=== PATIENT | female | born 1950 | race Caucasian/White ===

== ENCOUNTER 2017-02-08 10:28 | Outpatient (CLI) | payer MEDICARE ==
--- NOTE | 2017-02-08 14:32 | NM ---
WHOLE BODY BONE SCAN: HISTORY: Back pain and left hip pain. The patient had back surgery. She has a left-sided gluteal neurostimul ator device. RADIOPHARMACEUTICAL: 32.7 mCi Technetium 99m injected intravenously. FINDINGS: There is a small focus of asymmetrically increased uptake in the superolateral aspect of the left hip joint. There is a small focus of increased uptake in the lumbar spine to the right of midline at L1-2 level . This likely is due to degenerative/postoperative change. Increased uptake in the left ankle is consistent with postop changes noted on the ankle x-rays of 12/12/14. Increased uptake in the feet and shoulders is consistent with degenerative changes. Tracer ex cretion through the kidneys is within normal limits. IMPRESSION: Small focus of increased uptake in the superolateral aspect of the left hip. Correlation with plain radiographs is recommended. POS: [facility]
== END 2017-02-08 10:29 | disposition home or self-care (01) ==
LOC: NM 10:28
PROVIDERS: ATTEND Orthopaedic Surgery
DX: M16.12 Unilateral primary osteoarthritis, left hip (principal)
CPT/HCPCS: 78306; A9503

== ENCOUNTER → 2017-03-30 | Day surgery (SDC) | payer MEDICARE ==
[2017-03-29 13:11] VITALS: BMI 26.5
[~2017-03-30] MED LIST: FLU VACC TS2017-18 (>65YR) 0.5 ML SYRINGE IM ONE; Prevnar 13-Val Conj/PF 0.5 ML SYRINGE IM ONE
[2017-03-30 09:33] VITALS: TEMP 97.8
--- NOTE | 2017-03-30 11:37 | RAD ---
LUMBAR SPINE RADIOGRAPH SERIES: INDICATION: Lumbar radiculopathy. FINDINGS: There is left convexity curvature of the lumbar spine. Mild retrolisthesis of L2 on 3. With flexion and extension positioning views, no obvious abnormal translational motion is present. There is mult ilevel end plate degenerative change and disk space narrowing. Intradiskal space device is present a t L4-5 and L5-S1. Multilevel facet hypertrophy is present. There is a partially imaged electronic s pro device present. IMPRESSION: Degenerative change and multilevel mild listhesis of the lumbar spine without obvious or significant translational motion. POS: [facility]
--- NOTE | 2017-03-30 11:47 | RAD ---
LUMBAR SPINE MYELOGRAM INDICATION: Lumbar radiculopathy. PROCEDURE: After informed consent had been obtained, the patient was escorted to the interventional suite and pl aced on the procedural table. Migratory Worker imaging was performed. The patient was placed into a prone posi tion. Skin on the low back was then prepped and draped in the standard sterile fashion and topical a nd regional soft tissue anesthesia was achieved with 1% lidocaine and sodium bicarbonate. L4-5 inte rlaminar approach was selected, and a 22 gauge needle was uneventfully advanced into the thecal sac w ith clear color CSF. Subsequently, 12 cc Isovue-M 300 was instilled into the thecal sac under real t maddie fluoroscopy. Appropriate opacification of thecal sac demonstrated with imaging stored [facility]. The needle was then removed from the patient. The patient tolerated the procedure well and was then transferred to CT to undergo subsequent myelogram. Reference separate report for full la nena ls. Fluoro data: 0.1 minutes intermittent fluoroscopy, 19 mGy*^m2. IMPRESSION: Technically successful lumbar myelogram as detailed above. POS: [facility]
--- NOTE | 2017-04-02 07:35 | CT ---
LUMBAR SPINE MYELOGRAM CT LUMBAR SPINE WITH CONTRAST: CLINICAL HISTORY: Lumbar radiculopathy. Low back pain, and bilateral hip pain. FINDINGS: Left convexity curvature of the lumbar spine is present. There is multilevel degenerative change at the lumbar spine, with the most pronounced endplate degenerative change at the L1-L2 level. There is diffuse osseous demineralization. A slight degree of retrolisthesis is seen at the L1-L2 and at the L2-L3 levels. Intradiskal space device is present at L4-L5 and at L5-S1. No acute compression frac ture is seen. The conus medullaris terminates at the L2 level, normal in morphology. L5-S1: The thecal sac is patent. There is mild osseous narrowing of each neural foramen. L4-L5: There is mild effacement of the ventral thecal sac. Limited visualization by streak artifact from adjacent hardware. There is mild osseous narrowing of the right neural foramen due to laterali zed osteophyte. No high grade left foraminal narrowing. L3-L4: There is mild narrowing of the central canal on the basis of a broad-based disk osteophyte. Mild bilateral narrowing of the subarticular zones and mild left foraminal stenosis present. L2-L3: There is a broad-based disk osteophyte at the left, asymmetric, with superimposed right parac entral disk protrusion. This results in mild narrowing of the central canal, as well as crowding of the bilateral traversing L3 nerve roots within the subarticular zones. There is mild osseous narrowi ng of each neural foramen. L1-L2: There is mild effacement of the right subarticular zone by disk osteophyte. Mild bilateral n eural foraminal stenosis is present due to a broad-based disk osteophyte. T12-L1: There is no high grade central canal stenosis. There is a left side approach, partially imaged electronic device with leads entering the posterior a spect of the vertebral column, at the T12-L1 level. Imaged retroperitoneum reveals no acute pathology. There is mild vascular calcification. There is c oarse calcification in the central abdomen. Multiple granulomatous calcifications are seen within th e spleen, and there is punctate hepatic calcification. IMPRESSION: Multilevel degenerative change throughout the lumbar spine, as outlined above. POS: [facility]
== END ==
LOC: RAD 09:06
PROVIDERS: ATTEND Physician Assistant Surgical
PROC: B00B1ZZ Plain Radiography of Spinal Cord using Low Osmolar Contrast (ICD-10-PCS; principal; 2017-03-30)
DX: M54.16 Radiculopathy, lumbar region (principal); Z88.0 Allergy status to penicillin; Z88.1 Allergy status to other antibiotic agents; Z88.2 Allergy status to sulfonamides
CPT/HCPCS: 62304; 72100; 72132

== ENCOUNTER 2017-05-04 23:40 | Inpatient (IN) | payer MEDICARE ==
[2017-05-05] MEDS ORDERED: Ondansetron HCl/PF 4 MG/2 ML Vial ONE ×2 (00:29→00:51)
[2017-05-05] MEDS ORDERED: Promethazine HCl 25 MG/ML VIAL ONE ×2 (00:29→00:51)
[2017-05-05 00:31] LABS: #Basophils 0.1 thou/uL (0.0-0.2); #Monocytes 0.6 thou/uL (0.11-0.59); #Neutrophils 7.7 thou/uL (1.40-6.50); %Basophils 0.8 % (0.0-1.0); %Eosinophils 0.2 % (0.0-10.0); %Lymphocytes 19.4 % (21.0-51.0); %Monocytes 5.8 % (0.0-10.0); %Neutrophils 73.9 % (42.0-75.0); Hemoglobin 13.7 g/dL (12.0-16.0); Mean Corpuscular HGB CONC 33.8 g/dL (32.0-36.0); Mean Corpuscular Hemoglobin 32.3 pg (27.0-31.0); Mean Corpuscular Volume 95.7 fl (81.0-99.0); Mean Platelet Volume 7.1 fL (7.4-10.4); Platelet Count 315 thou/uL (130-400); RBC Distribution Width 12.1 % (11.5-14.5); Red Blood Cell (RBC) Count 4.25 mill/uL (4.20-5.40); White Blood Cell (WBC) Count 10.4 thou/uL (4.8-10.8)
[2017-05-05 00:43] LABS: ALT (SGPT) 14 U/L (8-55); AST (SGOT) 16 U/L (5-34); Albumin 4.1 g/dL (3.4-4.8); Alkaline Phosphatase 75 U/L (40-150); Anion Gap 16 mmol/L (10-20); BUN (Urea Nitrogen) 12 mg/dL (9.8-20.1); Bilirubin, Total 0.8 mg/dL (0.2-1.2); Calc. Creatinine Clearance 0 mL/min (70-130); Calcium 8.9 mg/dL (7.8-10.44); Carbon Dioxide 22 mmol/L (23-31); Chloride 105 mmol/L (98-107); Estimated GFR-MDRD 72; Globulin 2.8 g/dL (2.4-3.5); Glucose 121 mg/dL (80-115); Lipase 10 U/L (8-78); Protein, Total 6.9 g/dL (6.0-8.3); Sodium 140 mmol/L (136-145)
[2017-05-05 00:52] LABS: Potassium 2.9 mmol/L (3.5-5.1)
[2017-05-05] MEDS ORDERED: Potassium Chloride 20 MEQ TAB ONE (01:04)
[2017-05-05] MEDS ORDERED: cloNIDine 0.1 MG TAB ONE (01:04)
[2017-05-05 03:12] VITALS: BMI 25.7
[2017-05-05] MEDS ORDERED: Promethazine HCl 12.5 MG in Sodium Chloride 0.9% 100 ML IVPB PRN (03:14)
[2017-05-05] MEDS: Ondansetron HCl/PF 4 MG/2 ML Vial IVP PRN ×3 (04:33→12:45)
[2017-05-05] MEDS ORDERED: Prevnar 13-Val Conj/PF 0.5 ML SYRINGE IM ONE (09:00)
[2017-05-05] MEDS: Promethazine HCl 25 MG/ML VIAL SLOW IVP PRN ×2 (10:14→16:55)
[2017-05-05] MEDS ORDERED: MORPHINE SULFATE 15 MG PO PRN (16:09)
[2017-05-05] MEDS ORDERED: Acetaminophen 500 MG TAB PO PRN (16:09)
[2017-05-05] MEDS ORDERED: diphenhydrAMINE 25 MG CAP PO PRN (16:09)
[2017-05-05] MEDS ORDERED: PROVENTIL INHALER 6.7 G (200 INHALATIONS) INH PRN (16:09)
[2017-05-05 16:22] LABS: Anion Gap 21 mmol/L (10-20); BUN (Urea Nitrogen) 8 mg/dL (9.8-20.1); Calc. Creatinine Clearance 70 mL/min (70-130); Calcium 9.6 mg/dL (7.8-10.44); Carbon Dioxide 19 mmol/L (23-31); Chloride 98 mmol/L (98-107); Estimated GFR-MDRD 70; Glucose 113 mg/dL (80-115); Sodium 135 mmol/L (136-145)
[2017-05-05 16:25] LABS: Potassium 2.7 mmol/L (3.5-5.1)
[2017-05-05] MEDS ORDERED: Zolpidem Tartrate 5 MG TAB PO PRN (16:35)
[2017-05-05] MEDS: Sodium Chloride 0.9% 1,000 ML IV SCH (16:47)
[2017-05-05] MEDS: Gabapentin 300 MG CAP PO SCH ×2 (16:47→20:03)
[2017-05-05] MEDS ORDERED: Potassium Chloride 40 MEQ in Sodium Chloride 0.9% 250 ML 250 ML IVPB SCH (17:15)
[2017-05-05] MEDS: ALPRAZolam 0.25 MG TAB PO SCH (20:02)
[2017-05-05] MEDS: Hydrocortisone 1% Cream 30 GM TUBE TOP SCH (20:03)
[2017-05-05] MEDS: cycloSPORINE 0.05% Ophthalmic Droperette EA EYE SCH (20:04)
[2017-05-05] MEDS: Lorazepam 2 MG/ML VIAL SLOW IVP PRN (20:05)
[2017-05-05] MEDS: Morphine 2 MG/ML SYRINGE SLOW IVP PRN (20:05)
[2017-05-05] MEDS: Morphine ER 30 MG TAB PO SCH (20:45)
[2017-05-06 01:22] LABS: Anion Gap 12 mmol/L (10-20); BUN (Urea Nitrogen) 9 mg/dL (9.8-20.1); Calc. Creatinine Clearance 82 mL/min (70-130); Carbon Dioxide 24 mmol/L (23-31); Chloride 103 mmol/L (98-107); Estimated GFR-MDRD 84; Glucose 126 mg/dL (80-115); Sodium 136 mmol/L (136-145)
[2017-05-06] MEDS: Sodium Chloride 0.9% 1,000 ML IV SCH ×3 (01:56→19:43)
[2017-05-06] MEDS: Morphine ER 30 MG TAB PO SCH ×3 (04:05→19:41)
[2017-05-06] MEDS: Promethazine HCl 25 MG/ML VIAL SLOW IVP PRN ×3 (04:06→19:43)
[2017-05-06] MEDS: Morphine 2 MG/ML SYRINGE SLOW IVP PRN ×3 (04:08→19:43)
[2017-05-06 08:42] LABS: Anion Gap 12 mmol/L (10-20); BUN (Urea Nitrogen) 11 mg/dL (9.8-20.1); Calc. Creatinine Clearance 86 mL/min (70-130); Calcium 8.7 mg/dL (7.8-10.44); Carbon Dioxide 23 mmol/L (23-31); Chloride 103 mmol/L (98-107); Estimated GFR-MDRD 87; Glucose 122 mg/dL (80-115); Sodium 135 mmol/L (136-145)
[2017-05-06 08:45] LABS: Potassium 2.9 mmol/L (3.5-5.1)
[2017-05-06] MEDS: Gabapentin 300 MG CAP PO SCH ×4 (09:11→19:41)
[2017-05-06] MEDS: Escitalopram Oxalate 10 mg Tablet PO SCH (09:11)
[2017-05-06] MEDS: ALPRAZolam 0.25 MG TAB PO SCH ×3 (09:11→19:40)
[2017-05-06] MEDS: Docusate 100 MG CAP PO SCH (09:11)
[2017-05-06] MEDS: Hydrocortisone 1% Cream 30 GM TUBE TOP SCH ×2 (09:12→19:41)
[2017-05-06] MEDS: cycloSPORINE 0.05% Ophthalmic Droperette EA EYE SCH ×2 (09:12→19:41)
[2017-05-06 16:59] LABS: Anion Gap 12 mmol/L (10-20); BUN (Urea Nitrogen) 10 mg/dL (9.8-20.1); Calc. Creatinine Clearance 90 mL/min (70-130); Calcium 8.7 mg/dL (7.8-10.44); Carbon Dioxide 25 mmol/L (23-31); Chloride 103 mmol/L (98-107); Estimated GFR-MDRD Greater than 90; Glucose 109 mg/dL (80-115); Sodium 137 mmol/L (136-145)
[2017-05-06 17:07] LABS: Potassium 2.9 mmol/L (3.5-5.1)
[2017-05-06] MEDS: Lorazepam 2 MG/ML VIAL SLOW IVP PRN (21:20)
--- NOTE | 2017-05-06 23:56 | PDOC.PN ---
- Subjective Encounter Start Date: 05/06/17 Encounter Start Time: 15:00 Subjective: nsg notes rev, oumou ovn, pt c/o headache and ongoing pain in her chronic jenniffer -: n sites along with nausea and has been gagging with any oral intake incl -: ice chips. dtr and at bedside. - Objective Vital Signs & Weight: Vital Signs (12 hours) Temp Pulse Resp BP Pulse Ox 05/06/17 23:08 87 18 98 05/06/17 20:48 97.7 F 91 20 142/72 H 98 05/06/17 20:00 99.4 F 84 20 05/06/17 16:00 99.4 F 84 20 158/71 H 98 05/06/17 12:00 99.3 F 91 18 136/63 95 Weight Weight 147 lb 8 oz I&O: 05/05/17 05/06/17 05/07/17 06:59 06:59 06:59 Intake Total 55 2109 1.25 Balance 55 2109 1.25 Result Diagrams: 05/05/17 00:15 05/07/17 00:28 Phys Exam - Physical Examination Constitutional: NAD HEENT: moist MMs, sclera anicteric Respiratory: no wheezing, no rales, no rhonchi, clear to auscultation bilateral Cardiovascular: RRR, no significant murmur, no rub Gastrointestinal: soft, non-tender, positive bowel sounds BM not loose x2 in last 12 hrs Musculoskeletal: no edema, pulses present Neurological: moves all 4 limbs Psychiatric: A&O x 3 Deviation from normal: anxious affect Dx/Plan - Plan * 67F who p/w c/o of nausea, multiple pain sites, diarrhea s/p 3 days of self cessation from her pain regimen * * withdrawal * narcotic withdrawal from multi-opioid and anxiolytic regimen contributing to constellation of ssx on presentation * supportive care including cautious resumption of regimen in IV formatting until patient is able to tolerate PO in which case we will resume her home regimen * d/w pt and her at bedside that if she wants to come off the medications which would be great, a slow taper would be ideal on an outpatient basis * pt states that without her pain regimen her pain is unbearable but she doesn' t want to be taking any medications that could potentially be addictive. we discussed that most likely over time with a slow taper she might be able to utilize non pharmacologic ways to help both decrease pain levels and increase pain tolerance such as PT hypokalemia, improving * unclear if nausea is secondary to hypokalemia * diarrhea most likely etiology, continue replacement and serial BMP to monitor diet: IVF while pt unable to ayde PO activity: as ayde dvt ppx greater than 30 minutes spent at bedside discussing plan of care with patient and her family Review of Systems - Medications/Allergies Allergies/Adverse Reactions: Allergies Allergy/AdvReac Type Severity Reaction Status Date / Time Cephalosporins Allergy Rash Verified 05/05/17 03:14 NSAIDS (Non-Steroidal Allergy Verified 05/05/17 03:15 Anti-Inflamma Penicillins Allergy Hives Verified 05/05/17 03:14 Sulfa (Sulfonamide Allergy Rash Verified 05/05/17 03:14 Antibiotics) Medications: Current Medications Acetaminophen (Tylenol) 1,000 mg PO Q6HR PRN PRN Reason: Pain Albuterol Sulfate (Proventil Hfa) 2 puff INH Q4HR PRN PRN Reason: SOB &/or Wheezing Alprazolam (Xanax) 0.25 mg PO TID [facility] Last Admin: 05/06/17 19:40 Dose: 0.25 mg Cyclosporine (Restasis) 0 ml EA EYE BID [facility] Last Admin: 05/06/17 19:41 Dose: 0.4 ml Diphenhydramine HCl (Benadryl) 25 mg PO Q8HR PRN PRN Reason: Allergies Docusate Sodium (Colace) 100 mg PO DAILY [facility] Last Admin: 05/06/17 09:11 Dose: Not Given Escitalopram Oxalate (Lexapro) 10 mg PO DAILY [facility] Last Admin: 05/06/17 09:11 Dose: Not Given Gabapentin (Neurontin) 300 mg PO QID [facility] Last Admin: 05/06/17 19:41 Dose: Not Given Hydrocortisone/Aloe (Hydrocortisone 1% Cream) 0 gm TOP BID [facility] Last Admin: 05/06/17 19:41 Dose: 1 applic Sodium Chloride (Normal Saline 0.9%) 1,000 mls @ 100 mls/hr IV .Q10H [facility] Last Admin: 05/06/17 19:43 Dose: 1,000 mls Potassium Chloride 40 meq/ (Sodium Chloride) 520 mls @ 130 mls/hr IV .Q4H [facility] Stop: 05/07/17 09:29 Last Admin: 05/07/17 08:04 Dose: 520 mls Lorazepam (Ativan) 0.5 mg SLOW IVP Q6H PRN PRN Reason: Anxiety/Agitation Last Admin: 05/06/17 21:20 Dose: 0.5 mg Mirabegron (Myrbetriq Er) 25 mg PO DAILY [facility] Last Admin: 05/06/17 09:12 Dose: Not Given Morphine Sulfate (Morphine) 2 mg SLOW IVP Q4H PRN PRN Reason: Pain Last Admin: 05/07/17 04:04 Dose: 2 mg Morphine Sulfate (Ms Contin) 30 mg PO Q8HR [facility] Last Admin: 05/07/17 04:21 Dose: Not Given Non-Formulary Medication (Morphine Sulfate [Arymo Er]) 15 mg PO Q4HR PRN PRN Reason: Pain Milnacipran Hcl [ (Savella] 50 Mg) 0 each PO BID [facility] Promethazine HCl (Phenergan) 12.5 mg SLOW IVP Q6H PRN PRN Reason: Nausea Last Admin: 05/07/17 04:05 Dose: 12.5 mg Sodium Chloride (Flush - Normal Saline) 10 ml IVF PRN PRN PRN Reason: Saline Flush Zolpidem Tartrate (Ambien) 10 mg PO HS PRN PRN Reason: Insomnia
[2017-05-07 01:04] LABS: Anion Gap 13 mmol/L (10-20); BUN (Urea Nitrogen) 11 mg/dL (9.8-20.1); Calc. Creatinine Clearance 91 mL/min (70-130); Calcium 8.5 mg/dL (7.8-10.44); Carbon Dioxide 24 mmol/L (23-31); Chloride 103 mmol/L (98-107); Estimated GFR-MDRD Greater than 90; Glucose 105 mg/dL (80-115); Sodium 137 mmol/L (136-145)
[2017-05-07 01:07] LABS: Potassium 2.8 mmol/L (3.5-5.1)
[2017-05-07] MEDS: Potassium Chloride 40 MEQ in Sodium Chloride 0.9% 500 ML IV SCH ×2 (01:36→08:04)
[2017-05-07] MEDS: Morphine 2 MG/ML SYRINGE SLOW IVP PRN ×3 (04:04→19:59)
[2017-05-07] MEDS: Promethazine HCl 25 MG/ML VIAL SLOW IVP PRN (04:05)
[2017-05-07] MEDS: Morphine ER 30 MG TAB PO SCH ×3 (04:21→23:15)
[2017-05-07] MEDS: Sodium Chloride 0.9% 1,000 ML IV SCH ×2 (09:02→18:31)
[2017-05-07] MEDS: Ondansetron ODT 4 MG TAB PO PRN ×2 (09:20→19:52)
[2017-05-07] MEDS: ALPRAZolam 0.25 MG TAB PO SCH ×3 (10:06→20:58)
[2017-05-07] MEDS: Hydrocortisone 1% Cream 30 GM TUBE TOP SCH ×2 (10:07→21:01)
[2017-05-07] MEDS: Escitalopram Oxalate 10 mg Tablet PO SCH ×2 (10:07→21:01)
[2017-05-07] MEDS: Docusate 100 MG CAP PO SCH (10:08)
[2017-05-07] MEDS: cycloSPORINE 0.05% Ophthalmic Droperette EA EYE SCH ×2 (10:08→21:02)
[2017-05-07] MEDS: Gabapentin 300 MG CAP PO SCH ×4 (10:08→20:45)
[2017-05-07] MEDS: Promethazine HCl 25 MG/ML VIAL IM/IV PRN (10:51)
[2017-05-07] MEDS ORDERED: MORPHINE SULFATE 15 MG PO PRN (12:35)
--- NOTE | 2017-05-07 13:27 | HP ---
CHIEF COMPLAINT: Nausea and vomiting with diarrhea and abdominal discomfort along with worsening of chronic pain. HISTORY OF PRESENT ILLNESS: This is a 67-year-old female, who was in her usual state of health appro ximately 4 days ago prior to admission, who subsequently stopped all of her pain medications one day prior to having a routine colonoscopy. The patient was able to tolerate the colonoscopy without any difficulties and decided that after the colonoscopy she wanted to be off of all of her opioid chronic pain medication regimen and then did not take any of her pain medications or anxiolytics for approxi mately 2 days before developing progressively worsening nausea, vomiting, abdominal pain, and worseni ng joint pain. At the time of my evaluation, the patient states that she does not want to be on chronic opioids anym ore and that she wishes to be off of these medications. Discussed with the patient any prior similar events, and she denies any prior similar events. Denies any sick contacts. REVIEW OF SYSTEMS: As per HPI. Constitutional: Endorses chills, no overt fevers. Endorses having headaches. No significant weight change in the last 2 months. HEENT: Headaches as above without ov ert vision changes, generalized weakness and fatigue without any vertigo. Cardiovascular: No chest pain, no chest pressure, no left-sided arm numbness or tingling. No episodes of diuresis, although g eneralized fevers and chills are described above without a focal temperature change from normal varia tion. Respiratory: No new cough. No new sinus congestion, no new earaches. Gastrointestinal: As per above. Diarrhea is described as loose watery and brown. Musculoskeletal: Generalized myalgias and arthralgias. The patient indicates that she has several locations for chronic pain, which are al l significantly worse and flaring up at this point in time. REVIEW OF SYSTEMS: Otherwise, negative. PAST MEDICAL HISTORY: As per above. 1. Has known history of acid reflux. 2. COPD. 3. Gastroesophageal reflux disease, chronic pain, specifically of the low back, status post orthoped ic surgery with fusion of L4-L5 and S1 in 2010. She also has a neurostimulator. 4. Fibromyalgia. 5. History of blood clot in 2002. 6. Status post colon polypectomy in 2005. 7. Status post appendectomy. 8. Status post tonsillectomy. HOME MEDICATIONS: Please see EMR for full details. Briefly, the patient's home regimen includes Hunter tolin inhaler, Myrbetriq, desonide topical, acetaminophen, morphine ER 30 mg p.o. q.8 hours, docusate , morphine sulfate 50 mg p.o. q.4 hours p.r.n., hydrocortisone acetate. doxycycline monohydrate, alp razolam 0.25 mg p.o. t.i.d., escitalopram oxalate 10 mg p.o. daily, citalopram 50 mg p.o. b.i.d., negrita apentin 1 cap p.o. q.i.d., Restasis 1 drop in each eye b.i.d., Benadryl 12.5 mg q.8 hours p.r.n., Zo lpidem, and Ambien 12.5 mg p.o. at bedtime p.r.n. DISCONTINUED MEDICATION: Includes, as described above, patient's self-cessation of her home regimen. ALLERGIES: NSAIDs and CEPHALOSPORINS and PENICILLINS, which cause hives, and SULFA ANTIBIOTICS, whic h cause a rash along with CEPHALOSPORINS. FAMILY HISTORY: No other family members has chronic pain issue as noted above. SOCIAL HISTORY: The patient denies any alcohol, tobacco, or illicit drug use. She is . Her is with her at bedside. She wishing to be FULL CODE at this point in time. PHYSICAL EXAMINATION: GENERAL: The patient is awake, alert, oriented x3, conversant, she states she feels uncomfortable, b ut is in no acute distress. HEENT: Normocephalic, atraumatic. Equal ocular motions are intact. Slightly dry mucous membranes. CARDIOVASCULAR: S1 and S2. No murmurs, rubs, or gallops. Pulses 2+ bilateral upper extremities, no pitting pedal edema. RESPIRATORY: Reasonable air movement. No conversational dyspnea, and no wheezes, rales, or rhonchi. Clear to auscultation bilaterally. ABDOMEN: Positive bowel sounds, soft, nontender to palpation. NEUROLOGIC: Moves all 4 extremities equally. LABORATORY DATA AND IMAGING: WBC 10.4, hemoglobin 13.7, hematocrit 40.7, platelets 315. Sodium 140, potassium 2.9, chloride 105, bicarbonate 22, anion gap 16, BUN 12, creatinine 0.2, glucose 121, calc ium 8.9, total bilirubin 0.8, AST 16, ALT 14, alkaline phosphatase 75, total protein 6.9, albumin 4.1 , lipase 10. ASSESSMENT AND PLAN: A 67-year-old female, who presented with a chief complaint of nausea, vomiting, and abdominal pain. 1. Opioid withdrawal, self-induced. 2. Resume the patient on her home regimen. I have discussed with the patient and her at [facility] regarding down taper to get the patient off of this pain measurement. I discussed with the patie nt that currently she has been placed on this regimen over the course of time secondary to refractory pain. It is possible to down titrate the regimen. However, also she will need adjunctive therapies to help her with increasing perhaps her pain tolerance as well. I discussed with the patient that I do not feel that it is realistic to have her both pain free and completely past withdrawal of all of her narcotics within a day or two of hospitalization. At this point in time, we will attempt to car e for the patient through her withdrawal to the point that she is able to resume her medication. Beverly martinez discussed with the patient that moving forward most likely it would be prudent to discontinue her short-acting narcotics first, but continue with her long-acting narcotics and slowly down titrate do se as tolerated. 3. Diarrhea with hypokalemia, suspect the diarrhea is secondary to withdrawal process from the opioi ds. Patient does have some hypokalemia. We will initiate IV replacement, as the patient is unable t o tolerate any oral intake at this point in time. Closely monitor for continued hypokalemia. Len luther once the patient's diarrhea resolves she will subsequently have improvement of her hypokalemia. 4. Diet: Patient is allowed a diet as soon as she is able to tolerate a diet. She currently will h ave IV fluids, normal saline, running at 100 while she is unable to tolerate p.o. intake. 5. Activity: As tolerated. 6. DVT prophylaxis. Thank you for asking me to care for the patient. The patient will be admitted under observation stat us as a FULL CODE.
[2017-05-07] MEDS: Lorazepam 2 MG/ML VIAL SLOW IVP PRN (13:43)
--- NOTE | 2017-05-07 23:30 | PDOC.PN ---
- Subjective Encounter Start Date: 05/07/17 Encounter Start Time: 18:00 Subjective: nsg notes rev, oumou ovn, still unable to tolerate PO c/o consistent -: cramping pain - Objective Vital Signs & Weight: Vital Signs (12 hours) Temp Pulse Resp BP Pulse Ox 05/07/17 20:00 98.3 F 83 18 146/65 H 98 05/07/17 16:00 100.3 F H 76 18 169/77 H 98 05/07/17 11:50 97.9 F 77 18 145/65 H 100 Weight Weight 149 lb 3.2 oz I&O: 05/06/17 05/07/17 05/08/17 06:59 06:59 06:59 Intake Total 2109 934.25 800 Balance 2109 934.25 800 Result Diagrams: 05/05/17 00:15 05/07/17 23:48 Phys Exam - Physical Examination Constitutional: NAD HEENT: PERRLA, moist MMs, sclera anicteric Respiratory: no wheezing, no rales, no rhonchi, clear to auscultation bilateral Cardiovascular: RRR, no significant murmur, no rub Gastrointestinal: soft, positive bowel sounds ttp throughout Musculoskeletal: no edema, pulses present Dx/Plan - Plan * * 67F who p/w c/o of nausea, multiple pain sites, diarrhea s/p 3 days of self cessation from her pain regimen * * withdrawal * narcotic withdrawal from multi-opioid and anxiolytic regimen contributing to constellation of ssx on presentation * supportive care including cautious resumption of regimen in IV formatting until patient is able to tolerate PO in which case we will resume her home regimen * given duration of abd pain with diarrhea, will check CT abd/pelvis ? superimposed colitis although she just had a colo without mention of abnormality last wee per pt * d/w pt and her at bedside that if she wants to come off the medications which would be great, a slow taper would be ideal on an outpatient basis * pt states that without her pain regimen her pain is unbearable but she doesn' t want to be taking any medications that could potentially be addictive. we discussed that most likely over time with a slow taper she might be able to utilize non pharmacologic ways to help both decrease pain levels and increase pain tolerance such as PT hypokalemia, improving * unclear if nausea is secondary to hypokalemia * diarrhea most likely etiology, continue replacement and serial BMP to monitor diet: IVF while pt unable to ayde PO activity: as ayde dvt ppx
[2017-05-08 00:16] LABS: Anion Gap 14 mmol/L (10-20); BUN (Urea Nitrogen) 12 mg/dL (9.8-20.1); Calc. Creatinine Clearance 91 mL/min (70-130); Calcium 8.5 mg/dL (7.8-10.44); Carbon Dioxide 21 mmol/L (23-31); Chloride 103 mmol/L (98-107); Estimated GFR-MDRD Greater than 90; Glucose 102 mg/dL (80-115); Potassium 3.5 mmol/L (3.5-5.1); Sodium 134 mmol/L (136-145)
[2017-05-08] MEDS: Ondansetron ODT 4 MG TAB PO PRN ×2 (01:44→09:31)
[2017-05-08] MEDS: Morphine 2 MG/ML SYRINGE SLOW IVP PRN ×3 (01:53→15:45)
[2017-05-08] MEDS: Promethazine HCl 25 MG/ML VIAL IM/IV PRN (03:56)
[2017-05-08] MEDS: Sodium Chloride 0.9% 1,000 ML IV SCH ×2 (04:01→15:46)
[2017-05-08] MEDS: Morphine ER 30 MG TAB PO SCH ×3 (07:11→21:11)
[2017-05-08 08:21] LABS: Anion Gap 12 mmol/L (10-20); BUN (Urea Nitrogen) 11 mg/dL (9.8-20.1); Calc. Creatinine Clearance 92 mL/min (70-130); Calcium 8.7 mg/dL (7.8-10.44); Carbon Dioxide 24 mmol/L (23-31); Chloride 103 mmol/L (98-107); Estimated GFR-MDRD Greater than 90; Glucose 100 mg/dL (80-115); Potassium 3.3 mmol/L (3.5-5.1); Sodium 136 mmol/L (136-145)
--- NOTE | 2017-05-08 09:01 | CT ---
CT ABDOMEN AND PELVIS WITH IV CONTRAST: Date: 05/08/17 Multiple axial tomograms obtained through the abdomen and pelvis with IV enhancement. Oral contrast w as not given. INDICATIONS: Abdominal pain. Question colitis. History of diarrhea and vomiting. Surgical history includes appende ctomy. FINDINGS: Images through the lung bases reveal a calcified granuloma in the right lung base measuring 1.2 cm. Numerous calcified granuloma are seen in the spleen. Liver is unremarkable. There are coarse calcific ations involving the head and neck of the pancreas, which may indicate prior pancreatitis. Pancreas i s mildly atrophic and is otherwise unremarkable. Stomach and duodenum unremarkable. Adrenal glands normal. Kidneys unremarkable. Small bowel loops normal caliber. Evaluation of the colon reveals a nondistended colon. Nondistention results in suboptimal evaluation of the colonic wall. I cannot exclude mild mural thickening involvi ng the transverse and left colon. There is scattered diverticula in the left colon and sigmoid withou t CT evidence of diverticulitis. Aorta is normal caliber. Nonspecific periaortic lymph nodes are note d. A 1.0 cm periaortic lymph node is seen to the left of the aorta at the level of the left renal vei n. There are other subcentimeter periaortic nodes. Images through the pelvis show an unremarkable uterus and adnexa. Urinary bladder unremarkable in elise earance. There is an epidural stimulator device in place implanted in the subcutaneous tissues posterior to th e left ilium. The epidural lead appears adequately positioned. IMPRESSION: 1. Colon is nondistended, which limits evaluation. I cannot exclude mild mural thickening involving the transverse and left colon. There are scattered diverticula involving the left colon and sigmoid. 2. Evidence of prior granulomatous process is described above. 3. Coarse calcifications in the head and neck of the pancreas suggest prior pancreatitis. Recommend clinical correlation. POS: [facility]
[2017-05-08] MEDS: Gabapentin 300 MG CAP PO SCH ×4 (09:27→20:51)
[2017-05-08] MEDS: ALPRAZolam 0.25 MG TAB PO SCH ×3 (09:27→20:50)
[2017-05-08] MEDS: cycloSPORINE 0.05% Ophthalmic Droperette EA EYE SCH ×2 (09:29→21:01)
[2017-05-08] MEDS: Hydrocortisone 1% Cream 30 GM TUBE TOP SCH ×2 (09:30→21:03)
[2017-05-08] MEDS: Potassium Chloride 20 MEQ TAB PO SCH ×2 (09:31→17:33)
--- NOTE | 2017-05-08 09:40 | PDOC.PN ---
- Subjective Encounter Start Date: 05/08/17 Encounter Start Time: 09:43 Subjective: No new complaints. Still has generalized aches. -: Diarrhea improiving. No urther vomiting but has dry heaves. -: No acute events overnight. - Objective MAR Reviewed: Yes Vital Signs & Weight: Vital Signs (12 hours) Temp Pulse Resp BP Pulse Ox 05/08/17 08:00 98.5 F 99 18 140/68 98 Weight Weight 148 lb 4.527 oz I&O: 05/07/17 05/08/17 05/09/17 06:59 06:59 06:59 Intake Total 934.25 800 Balance 934.25 800 Result Diagrams: 05/05/17 00:15 05/08/17 07:36 Phys Exam - Physical Examination Still c/o generalized aches. HEENT: PERRLA, moist MMs, sclera anicteric Neck: no JVD, supple, full ROM Respiratory: no wheezing, no rales, no rhonchi, clear to auscultation bilateral Cardiovascular: RRR, no significant murmur, no rub Gastrointestinal: soft, non-tender, no distention, positive bowel sounds Musculoskeletal: no edema, pulses present Neurological: non-focal, moves all 4 limbs Psychiatric: normal affect, A&O x 3 Skin: no rash, normal turgor Dx/Plan (1) Acute narcotic withdrawal Code(s): F11.23 - OPIOID DEPENDENCE WITH WITHDRAWAL Status: Acute Comment: Continue supportive care. Diarrhea improved, vomiting suubsided. Wishes to be off narcotics. Will require outpatient tapering. (2) Hypokalemia Code(s): E87.6 - HYPOKALEMIA Status: Acute Comment: 2/2 diarrhea. Improving. (3) Back pain, chronic Code(s): M54.9 - DORSALGIA, UNSPECIFIED; G89.29 - OTHER CHRONIC PAIN Status: Acute Qualifiers: Back pain location: low back pain Back pain laterality: midline Sciatica presence: without sciatica Qualified Code(s): M54.5 - Low back pain; G89.29 - Other chronic pain; G89.29 - Other chronic pain Comment: Stable. Continue current pain regimen. (4) Nausea and vomiting Code(s): R11.2 - NAUSEA WITH VOMITING, UNSPECIFIED Status: Acute Qualifiers: Vomiting type: unspecified Vomiting Intractability: non-intractable Qualified Code(s): R11.2 - Nausea with vomiting, unspecified Comment: 2/2 narcotic withdrawal. Continue parenteral hydration, anti-emetics. - Plan cont current plan of care, plan discussed w/ family, DVT proph w/lovenox * . Review of Systems - Medications/Allergies Allergies/Adverse Reactions: Allergies Allergy/AdvReac Type Severity Reaction Status Date / Time Cephalosporins Allergy Rash Verified 05/05/17 03:14 NSAIDS (Non-Steroidal Allergy Verified 05/05/17 03:15 Anti-Inflamma Penicillins Allergy Hives Verified 05/05/17 03:14 Sulfa (Sulfonamide Allergy Rash Verified 05/05/17 03:14 Antibiotics) Medications: Current Medications Acetaminophen (Tylenol) 1,000 mg PO Q6HR PRN PRN Reason: Pain Albuterol Sulfate (Proventil Hfa) 2 puff INH Q4HR PRN PRN Reason: SOB &/or Wheezing Alprazolam (Xanax) 0.25 mg PO TID [facility] Last Admin: 05/08/17 09:27 Dose: 0.25 mg Cyclosporine (Restasis) 0 ml EA EYE BID [facility] Last Admin: 05/08/17 09:29 Dose: 0.4 ml Diphenhydramine HCl (Benadryl) 25 mg PO Q8HR PRN PRN Reason: Allergies Docusate Sodium (Colace) 100 mg PO DAILY [facility] Last Admin: 05/07/17 10:08 Dose: Not Given Escitalopram Oxalate (Lexapro) 10 mg PO HS [facility] Last Admin: 05/07/17 21:01 Dose: 10 mg Gabapentin (Neurontin) 300 mg PO QID [facility] Last Admin: 05/08/17 09:27 Dose: 300 mg Hydrocortisone/Aloe (Hydrocortisone 1% Cream) 0 gm TOP BID [facility] Last Admin: 05/08/17 09:30 Dose: Not Given Sodium Chloride (Normal Saline 0.9%) 1,000 mls @ 100 mls/hr IV .Q10H [facility] Last Admin: 05/08/17 04:01 Dose: 1,000 mls Lorazepam (Ativan) 0.5 mg SLOW IVP Q6H PRN PRN Reason: Anxiety/Agitation Last Admin: 05/07/17 13:43 Dose: 0.5 mg Mirabegron (Myrbetriq Er) 25 mg PO DAILY [facility] Last Admin: 05/08/17 09:29 Dose: Not Given Morphine Sulfate (Morphine) 2 mg SLOW IVP Q4H PRN PRN Reason: Pain Last Admin: 05/08/17 01:53 Dose: 2 mg Morphine Sulfate (Ms Contin) 30 mg PO Q8HR [facility] Last Admin: 05/08/17 07:11 Dose: Not Given Ondansetron HCl (Zofran Odt) 4 mg PO Q6H PRN PRN Reason: Nausea/Vomiting Last Admin: 05/08/17 09:31 Dose: 4 mg Milnacipran Hcl [ (Savella] 50 Mg) 0 each PO BID [facility] Promethazine HCl (Phenergan) 12.5 mg IM/IV Q6H PRN PRN Reason: Nausea Last Admin: 05/08/17 03:56 Dose: 12.5 mg Sodium Chloride (Flush - Normal Saline) 10 ml IVF PRN PRN PRN Reason: Saline Flush Zolpidem Tartrate (Ambien) 10 mg PO HS PRN PRN Reason: Insomnia
[2017-05-08] MEDS ORDERED: ISOVUE-370 76%-LOCM 1 ML ONE (14:44)
[2017-05-08 16:56] LABS: Anion Gap 13 mmol/L (10-20); BUN (Urea Nitrogen) 11 mg/dL (9.8-20.1); Calc. Creatinine Clearance 80 mL/min (70-130); Calcium 8.8 mg/dL (7.8-10.44); Carbon Dioxide 23 mmol/L (23-31); Chloride 101 mmol/L (98-107); Estimated GFR-MDRD 80; Glucose 131 mg/dL (80-115); Sodium 134 mmol/L (136-145)
[2017-05-08 17:03] LABS: Potassium 2.8 mmol/L (3.5-5.1)
[2017-05-08] MEDS ORDERED: Potassium Chloride 40 MEQ in Sodium Chloride 0.9% 250 ML 250 ML IVPB SCH (17:45)
[2017-05-08] MEDS ORDERED: Magnesium Sulfate 4 GM in Sodium Chloride 0.9% 250 ML 250 ML IVPB SCH (17:45)
[2017-05-08] MEDS: Escitalopram Oxalate 10 mg Tablet PO SCH (20:50)
[2017-05-09 00:13] LABS: Anion Gap 14 mmol/L (10-20); BUN (Urea Nitrogen) 9 mg/dL (9.8-20.1); Calc. Creatinine Clearance 77 mL/min (70-130); Calcium 8.3 mg/dL (7.8-10.44); Carbon Dioxide 22 mmol/L (23-31); Chloride 104 mmol/L (98-107); Estimated GFR-MDRD 76; Glucose 141 mg/dL (80-115); Potassium 3.8 mmol/L (3.5-5.1); Sodium 136 mmol/L (136-145)
[2017-05-09] MEDS: Sodium Chloride 0.9% 1,000 ML IV SCH ×2 (03:33→05:44)
[2017-05-09 04:56] LABS: #Basophils 0.1 thou/uL (0.0-0.2); #Eosinphils 0.1 thou/uL (0.0-0.7); #Lymphocytes 3.7 thou/uL (1.20-3.40); #Monocytes 0.7 thou/uL (0.11-0.59); #Neutrophils 4.8 thou/uL (1.40-6.50); %Eosinophils 1.5 % (0.0-10.0); %Lymphocytes 39.1 % (21.0-51.0); %Monocytes 7.7 % (0.0-10.0); %Neutrophils 50.7 % (42.0-75.0); Hemoglobin 12.1 g/dL (12.0-16.0); Mean Corpuscular Hemoglobin 32.7 pg (27.0-31.0); Mean Platelet Volume 7.9 fL (7.4-10.4); Platelet Count 261 thou/uL (130-400); RBC Distribution Width 12.1 % (11.5-14.5); White Blood Cell (WBC) Count 9.4 thou/uL (4.8-10.8)
[2017-05-09 05:06] LABS: Anion Gap 7 mmol/L (10-20); BUN (Urea Nitrogen) 8 mg/dL (9.8-20.1); Calc. Creatinine Clearance 86 mL/min (70-130); Calcium 8.3 mg/dL (7.8-10.44); Carbon Dioxide 28 mmol/L (23-31); Chloride 108 mmol/L (98-107); Estimated GFR-MDRD 87; Glucose 108 mg/dL (80-115); Magnesium 2.7 mg/dL (1.6-2.6); Potassium 4.5 mmol/L (3.5-5.1); Sodium 138 mmol/L (136-145)
[2017-05-09] MEDS: Morphine ER 30 MG TAB PO SCH ×2 (06:31→09:22)
[2017-05-09 07:48] VITALS: BP 101/54; TEMP 97.7
[2017-05-09] MEDS ORDERED: Potassium Chloride 20 MEQ TAB PO SCH ×2 (08:00)
[2017-05-09 08:20] LABS: Anion Gap 8 mmol/L (10-20); BUN (Urea Nitrogen) 9 mg/dL (9.8-20.1); Calc. Creatinine Clearance 88 mL/min (70-130); Calcium 8.1 mg/dL (7.8-10.44); Carbon Dioxide 26 mmol/L (23-31); Chloride 107 mmol/L (98-107); Estimated GFR-MDRD 88; Glucose 105 mg/dL (80-115); Potassium 4.3 mmol/L (3.5-5.1); Sodium 137 mmol/L (136-145)
[2017-05-09] MEDS ORDERED: Enoxaparin Sodium 40 MG/0.4 ML SYRINGE SC SCH (09:00)
[2017-05-09] MEDS: Hydrocortisone 1% Cream 30 GM TUBE TOP SCH (09:19)
[2017-05-09] MEDS: Gabapentin 300 MG CAP PO SCH (09:19)
[2017-05-09] MEDS: ALPRAZolam 0.25 MG TAB PO SCH (09:19)
[2017-05-09] MEDS: cycloSPORINE 0.05% Ophthalmic Droperette EA EYE SCH (09:20)
--- NOTE | 2017-05-09 20:16 | DIS ---
DATE OF ADMISSION: 05/05/2017 DATE OF DISCHARGE: 05/09/2017 DISCHARGE DIAGNOSES: Acute narcotic withdrawal, hypokalemia, chronic back pain, nausea, and vomiting . HISTORY OF PRESENT ILLNESS/HOSPITAL COURSE: A 67-year-old female who was in her usual state of healt h until about 4 days before admission when she decided to stop all her narcotic medications prior to having routine colonoscopy. She tolerated the procedures without difficulties and decided to go to [facility] and discontinued all her narcotics. After about 2 days, she developed progressively worse jose antonio nausea, vomiting, abdominal pain, and generalized ache with diaphoresis. At the emergency room, her vital signs were stable. Physical examination was largely unremarkable. Labs were significant for hypokalemia, anion gap of 16 with bicarbonate of 22, and normal creatinine. An assessment of acu te self-induced opioid withdrawal was made; hence, the patient was admitted to the hospital. She was started on parenteral fluids and other supportive measures. She continued to respond to treatment a nd her diarrhea eventually resolved as well as her nausea and vomiting. Her hypokalemia was correcte d parenterally and orally, and on day of discharge, her potassium was 4.5. She was advised to follow up with her primary care physician for weaning of her home opioids. DISCHARGE MEDICATIONS: Potassium chloride 20 mEq daily, Lexapro 10 mg daily, Xanax 0.25 mg 3 times a day, Ambien 12.5 mg at bedtime, gabapentin 1 cap 4 times daily, diphenhydramine 25 mg every 8 hours as needed for allergies, Restasis 1 drop in each eye twice a day, Savella 50 mg twice daily, acetamin ophen extra strength 1000 mg every 6 hours as needed for pain, mirabegron 25 mg daily, desonide appli ed topically twice a day, Ventolin inhaler 2 puffs inhaled every 4 hours as needed for shortness of b reath or wheezing, morphine extended release 30 mg every 8 hours, docusate 100 mg daily, doxycycline 100 mg every 12 hours, morphine sulfate 50 mg every 4 hours as needed for pain, hydrocortisone 25 mg rectally 3 times daily. PHYSICAL EXAMINATION: She was examined on the day of discharge. VITAL SIGNS: Blood pressure 101/54, temperature 97.7 degrees Fahrenheit, pulse 90, respiratory rate 17, oxygen saturation 96% on room air. GENERAL: Normocephalic, atraumatic. PERRLA. Moist mucous membranes, not pale, anicteric. NECK: No JVD. Supple with full range of movement. RESPIRATORY: Vesicular breath sounds bilaterally with no wheezes, rales or rhonchi. CARDIOVASCULAR: S1 and S2 with regular rate and rhythm. No murmurs, rubs or gallops. GASTROINTESTINAL: Soft, positive bowel sounds, nontender, nondistended, no organomegaly. MUSCULOSKELETAL: No edema. NEUROLOGIC: Alert and well oriented. No focal deficits. SKIN: Warm, dry, well perfused. No rashes or lesions. LABORATORY DATA: WBC 9.4, hemoglobin 12, platelet count 261. Sodium 137, potassium 4.3, chloride 10 7. Carbon dioxide 26, anion gap 8, BUN 9, creatinine 0.67, glucose 105, calcium 8.1. IMAGING: Abdomen/pelvis CT, this was done on 05/08/2017 and it showed a nondistended colon with scat tered diverticula involving the left colon and sigmoid, evidence of prior granulomatous process as de scribed, coarse calcification within the head and neck of the pancreas, she has prior pancreatitis, a nd recommend clinical correlation. PROCEDURES: None. CONSULTATIONS: None. CONDITION AT DISCHARGE: Stable and improved. DIET: Regular. ACTIVITY: To resume as tolerated. CARE GOALS: To follow up with her primary care physician within 1 week of discharge. Discharge time 65 minutes including chart review and documentation.
== END 2017-05-09 11:53 | disposition home or self-care (01) | DRG 897 ==
LOC: ERS 23:40 → OBSVTOIN 05-05 02:09 → T4-B 05-05 02:09
PROVIDERS: ADMIT Family Medicine; ATTEND Family Medicine
DX: F11.23 Opioid dependence with withdrawal (principal); J44.9 Chronic obstructive pulmonary disease, unspecified; E87.6 Hypokalemia; M54.9 Dorsalgia, unspecified; G89.29 Other chronic pain; R19.7 Diarrhea, unspecified; F13.230 Sedative, hypnotic or anxiolytic dependence with withdrawal, uncomplicated; K21.9 Gastro-esophageal reflux disease without esophagitis
CPT/HCPCS: 36415; 74178; 80048; 80053; 83690; 83735; 85025; 94660; 96361; 96374; 96375; J1650; J2060; J2270; J2405; J2550; J3475; J3480; J7050; Q0162

== ENCOUNTER 2017-07-31 15:43 | Outpatient (CLI) | payer MEDICARE | END 2017-07-31 15:44 | disposition home or self-care (01) | LOC: BICRAD 15:43 | PROVIDERS: ATTEND Internal Medicine Gastroenterology | DX: K59.00 Constipation, unspecified (principal); R10.13 Epigastric pain | CPT/HCPCS: 74022 ==

== ENCOUNTER 2017-08-03 09:45 | Outpatient (CLI) | payer MEDICARE ==
--- NOTE | 2017-08-03 12:06 | ULT ---
SONOGRAM ABDOMEN COMPLETE: Date: 08/03/17 HISTORY: Upper abdomen pain. FINDINGS: Gallbladder is decompressed around multiple shadowing stones. No gallbladder wall thickening or peric holecystic fluid. Common duct is 0.2 cm. Liver unremarkable without focal mass or intrahepatic biliar y dilatation. No free fluid. The spleen, kidneys, and visualized portions of the abdominal aorta, IVC , and pancreas are unremarkable. IMPRESSION: Cholelithiasis. No evidence of acute biliary obstruction. POS: [facility]
== END 2017-08-03 09:46 | disposition home or self-care (01) ==
LOC: ULT 09:45
PROVIDERS: ATTEND Internal Medicine Gastroenterology
DX: R10.13 Epigastric pain (principal); K59.00 Constipation, unspecified; K80.20 Calculus of gallbladder without cholecystitis without obstruction
CPT/HCPCS: 76700

== ENCOUNTER 2017-08-21 09:15 | Inpatient (IN) | payer MEDICARE ==
[2017-08-21] MEDS ORDERED: Ondansetron HCl/PF 4 MG/2 ML Vial ONE ×2 (10:08→12:26)
[2017-08-21] MEDS ORDERED: Levofloxacin 500 mg/D5W 100 ml Premix Bag ONE (10:08)
[2017-08-21] MEDS ORDERED: Sodium Chloride 0.9% 0 ML ONE (10:09)
[2017-08-21] MEDS ORDERED: Fentanyl 100 MCG/2 ML VIAL ONE ×5 (10:09→17:40)
[2017-08-21 10:12] LABS: #Basophils 0.1 thou/uL (0.0-0.2); #Lymphocytes 1.8 thou/uL (1.20-3.40); #Monocytes 0.6 thou/uL (0.11-0.59); #Neutrophils 7.2 thou/uL (1.40-6.50); %Basophils 0.7 % (0.0-1.0); %Eosinophils 0.4 % (0.0-10.0); %Lymphocytes 18.7 % (21.0-51.0); %Monocytes 5.7 % (0.0-10.0); %Neutrophils 74.5 % (42.0-75.0); Hemoglobin 14.2 g/dL (12.0-16.0); Mean Corpuscular HGB CONC 34.1 g/dL (32.0-36.0); Mean Corpuscular Hemoglobin 31.9 pg (27.0-31.0); Mean Corpuscular Volume 93.4 fL (78.0-98.0); Mean Platelet Volume 6.7 fL (7.4-10.4); Platelet Count 269 thou/uL (130-400); RBC Distribution Width 12.1 % (11.5-14.5); Red Blood Cell (RBC) Count 4.46 mill/uL (4.20-5.40); White Blood Cell (WBC) Count 9.7 thou/uL (4.8-10.8)
[2017-08-21 10:35] LABS: ALT (SGPT) 13 U/L (8-55); AST (SGOT) 17 U/L (5-34); Albumin 4.6 g/dL (3.4-4.8); Alkaline Phosphatase 84 U/L (40-150); Anion Gap 13 mmol/L (10-20); BUN (Urea Nitrogen) 12 mg/dL (9.8-20.1); Bilirubin, Direct 0.2 mg/dL (0.1-0.3); Bilirubin, Total 0.6 mg/dL (0.2-1.2); Calc. Creatinine Clearance 0 mL/min (70-130); Calcium 9.6 mg/dL (7.8-10.44); Carbon Dioxide 25 mmol/L (23-31); Chloride 100 mmol/L (98-107); Estimated GFR-MDRD 76; Glucose 110 mg/dL (80-115); Protein, Total 7.6 g/dL (6.0-8.3); Sodium 134 mmol/L (136-145)
[2017-08-21] MEDS ORDERED: Midazolam HCl 2 mg/2 ml Vial ONE ×2 (11:18→13:56)
[2017-08-21] MEDS ORDERED: PROPOFOL 200 MG/20 ML VIAL ONE (12:26)
[2017-08-21] MEDS ORDERED: Lidocaine 1% PF 5 ML VIAL ONE (12:26)
[2017-08-21] MEDS ORDERED: PHENYLEPHRINE-NS 100 MCG/ML 10 ML SYRINGE ONE (12:26)
[2017-08-21] MEDS ORDERED: Dexamethasone 20 MG/5 ML VIAL ONE (12:26)
[2017-08-21] MEDS ORDERED: Glycopyrrolate 0.2 MG/ML 5 ML SYRINGE ONE (12:26)
[2017-08-21] MEDS ORDERED: Bupivacaine HCl 0.25%/Epi 0.0005/PF 10 ML VIAL FS ONE (13:47)
[2017-08-21] MEDS ORDERED: Promethazine HCl 25 MG/ML VIAL ONE (14:03)
[2017-08-21] MEDS ORDERED: Iothalamate Meglumine 60% 50 ML VIAL FS ONE (15:23)
--- NOTE | 2017-08-21 15:48 | RAD ---
INTRAOPERATIVE CHOLANGIOGRAM INTRAOPERATIVE FLUOROSCOPY: HISTORY: Cholecystitis. FINDINGS: Intraoperative fluoroscopy was provided for cholangiogram as performed by Dr. Santana. Spot fluoroscop ic image shows operative hardware over the gallbladder fossa. There is contrast opacification of a n ondilated common bile duct. Contrast has passed into the duodenum. Partial lucency overlies the mos t central portion of the common duct. Correlation with real-time findings regarding the possibility of biliary debris within the common duct is required. POS: [facility]
[2017-08-21] MEDS ORDERED: SUGAMMADEX SODIUM 500 MG/5 ML VIAL ONE (16:03)
[2017-08-21] MEDS ORDERED: hydrALAZINE 20 MG/ML VIAL SLOW IVP PRN (16:12)
[2017-08-21] MEDS ORDERED: Calcium Carbonate 500 MG ChewTAB PO PRN (16:12)
[2017-08-21] MEDS ORDERED: Ondansetron HCl/PF 4 MG/2 ML Vial IVP PRN (16:12)
[2017-08-21] MEDS ORDERED: Mag-Al 1200 mg/1200 mg/30 ML UDCUP PO PRN (16:12)
[2017-08-21] MEDS ORDERED: Promethazine HCl 25 MG/ML VIAL IM PRN (16:12)
[2017-08-21] MEDS ORDERED: HYDROcodone/Acetaminophen 10/325 mg Tablet PO PRN (16:12)
[2017-08-21] MEDS ORDERED: Dextrose 50% Abboject 50 ML SYRINGE SLOW IVP PRN (16:12)
[2017-08-21] MEDS ORDERED: Dextrose 5% in Water 1,000 ML IV PRN (16:12)
[2017-08-21] MEDS: Famotidine/PF 20 mg/2ml Vial SLOW IVP SCH (19:51)
[2017-08-21 21:27] VITALS: BMI 27.4
[2017-08-21] MEDS: HYDROcodone/Acetaminophen 10/325 mg Tablet PO PRN (21:28)
[2017-08-21] MEDS: D5 1/2 NS w/20 mEq KCL 1,000 ML IV SCH (21:29)
[2017-08-21] MEDS: Famotidine 20 MG TAB PO SCH (21:29)
--- NOTE | 2017-08-21 23:54 | OP ---
PREOPERATIVE DIAGNOSIS: Acute cholecystitis. SURGEON: Andreas Santana MD PROCEDURE PERFORMED: Laparoscopic cholecystectomy with intraoperative cholangiogram. INDICATIONS: This is a 67-year-old female who has been hurting for about 3 days with severe right up per quadrant pain. She has an ultrasound showing cholelithiasis. FINDINGS: Very inflamed gallbladder, tense with purulent fluid; very large cystic duct, although she did have normal liver function tests. The cholangiogram did have free flow into the duodenum, but t here is a possible filling defect in the distal common duct. DESCRIPTION OF PROCEDURE: After informed consent was obtained, the patient was taken to the operatin g room and given general endotracheal anesthesia. She was placed in the supine position. Abdomen wa s prepped and draped in usual fashion. Local anesthesia infiltrated subcutaneously and deep. A subu mbilical incision was performed. Subcu divided sharply. The fascia was grasped and two stay sutures of 0 Vicryl placed on either side of midline. Midline was incised. Digital palpation revealed no l ocal adhesions. A blunt 10-12 mm trocar was inserted. Pneumoperitoneum was created to a pressure of 15 mmHg. Zero-degree laparoscope was inserted under direct vision. Three 5-mm ports were placed summers bcostally. The gallbladder was distended and inflamed. It was punctured with an aspirating needle a nd 40 mL of thick purulent fluid removed. This was sent for culture. The gallbladder was also firml y attached to the colon with adhesions. These were taken down sharply with Metzenbaum scissors. The n, the peritoneum was lysed distally and I kept dissecting and it did not ever seem like there was a cystic duct. So, I was concerned about it being a Mirizzi syndrome and rather than any further disse ction distally, I went down from the top down it from the liver bed until all that was lef t was the artery and this large duct. Because of the size of the duct, a cholangiogram was performed . An Arrow cholangiocatheter was inserted into the cystic duct and an intraoperative cholangiogram w as performed. Proximal hepatic ducts were fine. There was free flow into the duodenum, but there wa s also what appears to be a persistent filling defect in the distal common duct. The cystic duct was so large it had to be closed with Endoloops. The artery was triply ligated with Hemoclips and divid ed. The gallbladder was placed in an Endosac and removed from the abdomen in the Endosac. The wound was thoroughly irrigated. Peyton powder was used in the liver bed for hemostasis. A drain was plac ed and brought out through the lateral incision and placed in the subhepatic space. Hemostasis was a ssured. Trocars and retractors were removed. The fascia was closed with interrupted 0 Vicryl suture . The skin was closed with interrupted 4-0 Rapide. Dermabond was applied. The patient tolerated th e procedure well, transferred to recovery in good condition. Sponge and needle count verified correc t x2.
--- NOTE | 2017-08-22 02:15 | CON ---
DATE OF CONSULTATION: 08/21/2017 REQUESTING PHYSICIAN: Dr. Andreas Santana. REASON FOR CONSULTATION: Positive intraoperative cholangiogram. HISTORY OF PRESENT ILLNESS: Tanja Avalos is a very pleasant 67-year-old woman, patient of my GI [facility] e[facility], Dr. Amari Dodd. She has a history of fibromyalgia, depression and anxiety, and chroni c reflux. She had a recent EGD and colonoscopy with Dr. Dodd in April of this year. She was found to have left-sided diverticulosis and several colon polyps, all removed. The EGD was a normal exam. More recently, she had an abdominal ultrasound last month and this demonstrated cholelithiasis with normal common bile duct. She was referred to Dr. Santana for further evaluation. He took her for lap aroscopic cholecystectomy earlier today. I note that preoperative labs demonstrated normal LFTs. By report, the gallbladder was quite inflamed with a lot of pus, stones and sludge. An intraoperative cholangiogram was performed, and this demonstrated a lucency in the middle portion of the common bile duct consistent with retained stone or sludge, though there was no biliary dilation with this. We a re consulted for consideration of postoperative ERCP given the cholangiogram findings. The patient r eports that she does continue to have some upper abdominal discomfort, worse when she takes a deep br eath. There is no nausea at this time. Her pain is well controlled. She is afebrile postoperativel y. REVIEW OF SYSTEMS: Full review of systems including constitutional, head, eyes, ears, nose, throat, GI, , cardiovascular, respiratory, musculoskeletal, and neurologic systems is negative except as no sotero in the HPI. PAST MEDICAL HISTORY: Fibromyalgia, chronic sinusitis, GERD, depression and anxiety, anemia, mononuc leosis. PAST SURGICAL HISTORY: Left ankle surgery 2015, nasal polyp removal 1997, tonsillectomy 1959, peptic ulcer disease 02/2014 with most recent EGD in 04/2017 normal. Lower extremity DVT in 1997, cholecys tectomy earlier today. FAMILY HISTORY: Noncontributory. SOCIAL HISTORY: She is a former smoker. ALLERGIES: BACITRACIN, CEPHALEXIN, PENICILLIN. OUTPATIENT MEDICATIONS: Alprazolam, Ambien, Lexapro, Tylenol p.r.n., Benadryl p.r.n., Restasis eyedr ops, gabapentin, diclofenac transdermal gel, MS Contin 30 mg extended release every 8 hours, morphine sulfate 15 mg as needed, Combivent, Savella 50 mg twice daily. PHYSICAL EXAMINATION: VITAL SIGNS: Pulse 84, blood pressure 149/52, 97% oxygen saturation on room air, temperature of 36.2 degrees Celsius. GENERAL: A 67-year-old woman lying in bed comfortably in no distress. MENTAL: She is alert and oriented. She is able to answer questions appropriately. She is in no dis tress. SKIN: No jaundice, no rashes were palpable. EYES: No scleral icterus. Extraocular movements intact. ENT: Mucous membranes moist, no oral lesions. LYMPH: No submandibular, supraclavicular lymphadenopathy. THYROID: Nontender to palpation. HEART: Regular rate and rhythm. LUNGS: Clear to auscultation bilaterally. ABDOMEN: Surgical incisions are well dressed. Bowel sounds are hypoactive, diffuse tenderness to pa lpation, but no guarding or rebound tenderness. EXTREMITIES: No peripheral edema. VESSELS: Radial pulses 2+ bilaterally. NEUROLOGICAL: Cranial nerves II-XII intact bilaterally. No focal deficits. LABORATORY STUDIES: Preoperative labs from earlier today demonstrated WBC is 9.7, hemoglobin 14.2, p latelets 269. Sodium 134, potassium 4.0, BUN 12, creatinine 0.76, total bilirubin 0.6, direct biliru bin 0.2, alkaline phosphatase 84, AST 17, ALT 13, albumin 4.6. IMAGING STUDIES: Intraoperative cholangiogram from earlier today demonstrated contrast opacification of a nondilated common bile duct, but partial lucency overlying the most central portion of the comm on bile duct. ASSESSMENT AND PLAN: Choledocholithiasis. This is based on positive intraoperative cholangiogram fi ndings. The patient was noted to have stones and sludge in her gallbladder. Note, LFTs were normal prior to surgery, but it is likely that some debris got into the common bile duct based on the imagin g finding. We will plan for ERCP tomorrow. I discussed the procedure in detail with the patient and her including risk of ERCP to include post-ERCP pancreatitis. They express understanding. Please have her n.p.o. after midnight for the procedure. Thank you for the consultation. Please call any time with questions or concerns.
[2017-08-22 06:13] LABS: #Basophils 0.1 thou/uL (0.0-0.2); #Lymphocytes 2.1 thou/uL (1.20-3.40); #Monocytes 1.4 thou/uL (0.11-0.59); #Neutrophils 8.8 thou/uL (1.40-6.50); %Basophils 0.8 % (0.0-1.0); %Lymphocytes 16.6 % (21.0-51.0); %Monocytes 11.3 % (0.0-10.0); %Neutrophils 71.3 % (42.0-75.0); Hemoglobin 12.8 g/dL (12.0-16.0); Mean Corpuscular HGB CONC 32.8 g/dL (32.0-36.0); Mean Corpuscular Hemoglobin 31.4 pg (27.0-31.0); Mean Corpuscular Volume 95.8 fL (78.0-98.0); Mean Platelet Volume 6.9 fL (7.4-10.4); Platelet Count 277 thou/uL (130-400); RBC Distribution Width 12.2 % (11.5-14.5); Red Blood Cell (RBC) Count 4.09 mill/uL (4.20-5.40); White Blood Cell (WBC) Count 12.3 thou/uL (4.8-10.8)
[2017-08-22] MEDS: D5 1/2 NS w/20 mEq KCL 1,000 ML IV SCH ×3 (06:25→23:27)
[2017-08-22 06:34] LABS: ALT (SGPT) 66 U/L (8-55); AST (SGOT) 68 U/L (5-34); Alkaline Phosphatase 71 U/L (40-150); Anion Gap 11 mmol/L (10-20); BUN (Urea Nitrogen) 6 mg/dL (9.8-20.1); Bilirubin, Total 0.6 mg/dL (0.2-1.2); Calc. Creatinine Clearance 77 mL/min (70-130); Calcium 9.1 mg/dL (7.8-10.44); Carbon Dioxide 28 mmol/L (23-31); Chloride 106 mmol/L (98-107); Estimated GFR-MDRD 75; Globulin 2.7 g/dL (2.4-3.5); Glucose 148 mg/dL (80-115); Potassium 4.6 mmol/L (3.5-5.1); Protein, Total 6.7 g/dL (6.0-8.3); Sodium 140 mmol/L (136-145)
[2017-08-22] MEDS ORDERED: Morphine 4 MG/ML VIAL ONE (11:53)
[2017-08-22] MEDS: Famotidine 20 MG TAB PO SCH ×2 (12:38→21:28)
[2017-08-22] MEDS: Famotidine/PF 20 mg/2ml Vial SLOW IVP SCH ×2 (12:38→21:28)
[2017-08-22] MEDS ORDERED: Indomethacin 50 MG SUPP ONE (13:26)
[2017-08-22] MEDS ORDERED: Iothalamate Meglumine 60% 50 ML VIAL FS ONE (13:26)
[2017-08-22] MEDS ORDERED: Fentanyl 100 MCG/2 ML VIAL ONE (13:40)
[2017-08-22] MEDS: HYDROcodone/Acetaminophen 10/325 mg Tablet PO PRN (18:19)
--- NOTE | 2017-08-22 18:43 | OP ---
DATE OF PROCEDURE: 08/22/2017 GI ENDOSCOPY NOTE SURGEONS: 1. Terence Somers MD. 2. Cal Dallas MD. PROCEDURE: Endoscopic retrograde cholangiopancreatography with biliary sphincterotomy and stone extr action. INDICATION: Choledocholithiasis, based on positive intraoperative cholangiogram performed yesterday. MEDICATIONS: 1. See anesthesia record. 2. Indomethacin 100 mg per rectum. FINDINGS: After discussion of the risks, benefits and alternatives of the procedure, informed consen t was obtained and witnessed. Pre-endoscopic cardiopulmonary examination was satisfactory. Timeout was performed before sedation was achieved. Sedation was achieved with anesthesia assistance in the endoscopy unit. The patient was placed in a semi-prone position on the fluoroscopy table. A Pentax adult side-viewing duodenoscope was advanced through the mouth beyond the esophagus and stomach and i nto the first and second portion of the duodenum. The ampulla was brought into view with the endosco pe in the short position. The ampulla appeared normal. Using a triple lumen dome tip sphincterotome and a 0.035 guidewire, we were able to selectively cannulate the common bile duct. Initially, the g uidewire was passing into the pancreatic duct and so we were able to leave the guidewire within the p ancreatic duct and passed a second guidewire with the assistance of the cannula, into the common bile duct. At this point, a cholangiogram was performed. It did demonstrate a single small filling defe ct in the mid common bile duct. Biliary sphincterotomy was then performed. We made several sweeps o f the common bile duct with a 12 mm balloon fully inflated. In this fashion, we extracted a single s tone from the common bile duct successfully. Occlusion cholangiogram was performed and this demonstr ated no persistent filling defects in the common bile duct. One final sweep was made to sweep out ex cess contrast from the common bile duct. The working apparatus was then completely withdrawn and the endoscope was withdrawn and the procedure was completed. The patient tolerated the procedure well. There were no immediate post-procedure complications. IMPRESSION: Choledocholithiasis, now status post successful endoscopic retrograde cholangiopancreato graphy with biliary sphincterotomy and stone extraction. RECOMMENDATIONS: 1. Monitor for potential post-ERCP complications including pancreatitis. 2. Advance diet as tolerated.
[2017-08-23 06:33] LABS: ALT (SGPT) 530 U/L (8-55); AST (SGOT) 605 U/L (5-34); Albumin 3.7 g/dL (3.4-4.8); Alkaline Phosphatase 187 U/L (40-150); Anion Gap 12 mmol/L (10-20); BUN (Urea Nitrogen) 11 mg/dL (9.8-20.1); Bilirubin, Total 1.5 mg/dL (0.2-1.2); Calc. Creatinine Clearance 72 mL/min (70-130); Calcium 8.4 mg/dL (7.8-10.44); Carbon Dioxide 25 mmol/L (23-31); Chloride 103 mmol/L (98-107); Estimated GFR-MDRD 69; Globulin 2.5 g/dL (2.4-3.5); Glucose 122 mg/dL (80-115); Lipase 285 U/L (8-78); Potassium 4.7 mmol/L (3.5-5.1); Protein, Total 6.2 g/dL (6.0-8.3); Sodium 135 mmol/L (136-145)
[2017-08-23] MEDS: D5 1/2 NS w/20 mEq KCL 1,000 ML IV SCH (07:26)
[2017-08-23] MEDS ORDERED: Sodium Chloride 0.9% 500 ML IV SCH (08:30)
[2017-08-23] MEDS: Famotidine 20 MG TAB PO SCH (09:48)
[2017-08-23] MEDS: Famotidine/PF 20 mg/2ml Vial SLOW IVP SCH (09:49)
[2017-08-23 18:34] VITALS: BP 110/56; TEMP 97.4
--- NOTE | 2017-08-23 19:10 | PRG ---
DATE OF SERVICE: 08/23/2017 SUBJECTIVE: Ms. Avalos is doing well today. Her drain was removed. She was able to eat a full lunc h and tolerated with no abdominal pain or nausea. She did have a bump in LFTs and a small bump in li pase as well, but is feeling quite well. Discharge is planned for later today. OBJECTIVE: VITAL SIGNS: Temperature 97.6, pulse 86, blood pressure 115/69, 92% oxygen saturation on room air. GENERAL: No acute distress. HEART: Regular rate and rhythm. LUNGS: Clear to auscultation bilaterally. ABDOMEN: Bowel sounds present, soft, mild tenderness to palpation, but no guarding, rebound tenderne ss. EXTREMITIES: No peripheral edema. LABORATORY DATA: Sodium 135, potassium 4.7, BUN 11, creatinine 0.83, total bilirubin up to 1.5, parveen line phosphatase 187, AST 605, ALT 530. Lipase 285. ASSESSMENT AND PLAN: 1. Choledocholithiasis, status post successful endoscopic retrograde cholangiopancreatography with s tone extraction from the common bile duct yesterday. 2. Post-ERCP pancreatitis, mild, resolved. Laboratory values reflect a mild post-ERCP pancreatitis, but this was quite clinically mild and has essentially resolved clinically already. I see no contra indication to hospital discharge at this time. The patient is established in our clinic with Dr. Michele, and can follow up with him as needed. She was advised to please call our office if there are an y issues.
--- NOTE | 2017-08-24 01:03 | DIS ---
DISCHARGE DIAGNOSES: 1. Acute cholecystitis. 2. Choledocholithiasis. PROCEDURES DURING ADMISSION: Laparoscopic cholecystectomy with intraoperative cholangiogram, ERCP wi sphincterotomy and stone extraction. HOSPITAL COURSE: The patient was admitted, given IV antibiotics, taken to the operating room where s he underwent a laparoscopic cholecystectomy. She was found to have an infected gallbladder. Cholang iogram was performed that showed a filling defect in the distal common duct. GI was consulted and ey performed an ERCP, sphincterotomy and stone extraction. She is doing well now. Pain is well cont rolled on oral meds. She is afebrile. Vital signs are fine. She is tolerating diet. She is discha rged home. She actually has morphine at home, Zofran and doxycycline. She will follow up with me in 2 weeks.
== END 2017-08-23 19:00 | disposition home or self-care (01) | DRG 419 ==
LOC: SDC 09:15 → SURG B 18:25
PROVIDERS: ADMIT Surgery; ATTEND Surgery
PROC: 0FT44ZZ Resection of Gallbladder, Percutaneous Endoscopic Approach (ICD-10-PCS; principal; 2017-08-22)
PROC: BF101ZZ Fluoroscopy of Bile Ducts using Low Osmolar Contrast (ICD-10-PCS; 2017-08-22)
PROC: 0FC98ZZ Extirpation of Matter from Common Bile Duct, Via Natural or Artificial Opening Endoscopic (ICD-10-PCS; 2017-08-22)
DX: K80.00 Calculus of gallbladder with acute cholecystitis without obstruction (principal); K21.9 Gastro-esophageal reflux disease without esophagitis
CPT/HCPCS: 36415; 76000; 80048; 80053; 80076; 83690; 85025; 87070; 87205; 88304; 96374; A4216; J1100; J1610; J1956; J2001; J2250; J2270; J2405; J2550; J2704; J3010; J7050; Q9961

== ENCOUNTER 2018-01-09 11:30 | Day surgery (SDC) | payer MEDICARE ==
[2018-01-08 11:58] VITALS: BMI 26.5
[2018-01-09] MEDS ORDERED: Sodium Chloride 0.9% 0 ML ONE ×2 (13:30→13:37)
[2018-01-09] MEDS ORDERED: Bupivacaine HCl 0.5%/Epinephrine 1:200,000/PF 30 ml Vial ONE ×2 (13:30→13:36)
[2018-01-09] MEDS ORDERED: Propofol 500 MG/50 ML VIAL ONE (13:48)
[2018-01-09] MEDS ORDERED: Fentanyl 100 MCG/2 ML VIAL ONE (13:48)
[2018-01-09] MEDS ORDERED: Midazolam HCl 2 mg/2 ml Vial ONE (13:49)
[2018-01-09] MEDS ORDERED: Ondansetron PF 4 MG/2 ML Vial ONE (16:33)
[2018-01-09] MEDS ORDERED: PROPOFOL 200 MG/20 ML VIAL ONE (16:33)
--- NOTE | 2018-01-11 11:11 | OP ---
DATE OF PROCEDURE: 01/09/2018 PREOPERATIVE DIAGNOSES: 1. Postlaminectomy syndrome. 2. Chronic pain syndrome. POSTOPERATIVE DIAGNOSES: 1. Postlaminectomy syndrome. 2. Chronic pain syndrome. 3. Nonfunctioning internal pulse generator. PROCEDURES PERFORMED: 1. Explant of nonfunctioning spinal cord stimulation internal pulse generator. 2. Implantation of new functional internal pulse generator, [employer]. ANESTHESIA: TIVA. COMPLICATIONS: None. BLOOD LOSS: Less than 10 mL. SUMMARY: Risks and benefits were discussed. Informed consent was obtained. She was taken to the OR and prepped and draped in standard fashion. Fluoroscopic imaging was used to identify the leads, which appeared to be in proper positioning. Standard prep and drape. 1% lidocaine with 0.25% Marcaine with epinephrine mixed 50:50 was used for skin and subcutaneous anesthesia over the exiting IPG pocket. Incision was made over the exiting incision and using blunt dissection with the Metzenbaum. Care was taken to avoid any existing implanted wires and hardware. Internal pulse generator was externalized. The set screws were loosened. The leads were removed from the internal pulse generator and then connected to the new [employer] pulse generator. Intraoperative programing then ensued with the patient awake. We were able to achieve appropriate bilateral stimulation with electrode array and all impedances were intact. The set screws were then retightened to appropriate tightness and the new generator was placed in the pocket . Closure was accomplished with 0 Vicryl, 2-0 Vicryl in layers and the skin was closed with the running subcuticular 3-0 Rapide suture. Mastisol and Steri-Strips were used for the incision. 4x4s and Medipore tape for the dressing. Prior to closure, all counts were correct x2 and there were no complications. Job ID: [id number]
== END 2018-01-09 16:02 | disposition home or self-care (01) ==
LOC: SDC 11:30
PROVIDERS: ATTEND Anesthesiology Pain Medicine
PROC: 0JH70MZ Insertion of Stimulator Generator into Back Subcutaneous Tissue and Fascia, Open Approach (ICD-10-PCS; principal; 2018-01-09)
DX: M96.1 Postlaminectomy syndrome, not elsewhere classified (principal); G89.4 Chronic pain syndrome; T85.118A Breakdown (mechanical) of other implanted electronic stimulator of nervous system, initial encounter; M48.061 Spinal stenosis, lumbar region without neurogenic claudication; M47.26 Other spondylosis with radiculopathy, lumbar region; Z79.899 Other long term (current) drug therapy; Z88.0 Allergy status to penicillin; Z88.1 Allergy status to other antibiotic agents; Z88.2 Allergy status to sulfonamides; Z88.8 Allergy status to other drugs, medicaments and biological substances
CPT/HCPCS: 76001; J0670; J2250; J2405; J2704; J3010; J3490